=== PATIENT | female | born 1945 | race Caucasian/White ===

== ENCOUNTER → 2021-01-13 20:14 | Outpatient (ROUT) | payer MEDICARE, SELFPAY ==
[2021-01-13 20:58] LABS: Add Manual Diff / Slide Review NO; Basophils Absolute Auto 100 /uL (0-100); Basophils Percent Auto 0.7 % (0-2); Eosinophils Absolute Auto 300 /uL (0-450); Eosinophils Percent Auto 4.8 % (2-4); Hematocrit 43.7 % (36-46); Hemoglobin 14.4 g/dL (12.0-16.0); Lymphocytes Absolute Auto 2100 /uL (1100-4500); Lymphocytes Percent Auto 28.7 % (25-40); Mean Corpuscular Hemoglobin 30.4 PG (26-34); Mean Corpuscular Volume 92.1 fL (80-100); Monocytes Absolute Auto 400 /uL (0-900); Neutrophils Absolute Auto 4300 /uL (1500-7000); Neutrophils Percent Auto 59.8 % (50-75); Platelet Count 250 X10^3/uL (150-400); Red Blood Cell Count 4.75 X10^6/uL (4.0-5.2); White Blood Cell Count 7.2 X10^3/uL (4.5-11.0)
[2021-01-13 21:02] LABS: Alanine Aminotransferase 14 IU/L (<35); Albumin Globulin Ratio 1.5 (1.0-2.8); Alkaline Phosphatase 84 U/L (38-126); Aspartate Aminotransferase 23 IU/L (14-36); BUN Creatinine Ratio 19.7 (6-22); Bilirubin Total 0.3 mg/dL (0.2-1.3); Blood Urea Nitrogen 12 mg/dL (7-17); Calcium 9.4 mg/dL (8.4-10.2); Carbon Dioxide 29 mmol/L (22-32); Chloride 103 mmol/L (98-107); Cholesterol 230 mg/dL (140-199); Estimated Glomerular Filt Rate > 60.0 mL/min (>60); Globulin 2.6 g/dL (1.7-4.1); Glucose 95 mg/dL (80-110); HDL Cholesterol 75 mg/dL (40-60); HEMOLYSIS < 15 (0-50); LDL Cholesterol Calculated 133 mg/dL (<100); Potassium 4.1 mmol/L (3.4-5.1); Sodium 139 mmol/L (137-145); Total Protein 6.6 g/dL (6.3-8.2); Triglycerides 110 mg/dL (35-150)
[2021-01-13 21:32] LABS: TSH w/ Reflex to FT4 2.36 uIU/mL (0.47-4.68)
== END ==
PROVIDERS: Visit Provider Internal Medicine
DX: E78.2 Mixed hyperlipidemia (principal); I48.0 Paroxysmal atrial fibrillation
CPT/HCPCS: 80053; 80061; 84443; 85025

== ENCOUNTER → 2021-05-28 16:36 | Outpatient (CLI) | payer MEDICARE, OTHER, SELFPAY ==
--- NOTE | 2021-05-28 16:38 | DI.MG.S_ITS ---
BILATERAL DIGITAL SCREENING MAMMOGRAM 3D/2D WITH CAD: 05/28/2021 CLINICAL: Routine screening. Family history of breast cancer. Comparison is made to exams dated: 12/30/2017 mammogram, 07/07/2017 mammogram, 01/18/2017 mammogram - outside facility, and 11/19/2015 ultrasound - outside. The tissue of both breasts is heterogeneously dense. This may lower the sensitivity of mammography. Current study was also evaluated with a Computer Aided Detection (CAD) system. No significant masses, calcifications, or other findings are seen in either breast. There has been no significant interval change. IMPRESSION: NEGATIVE There is no mammographic evidence of malignancy. A 1 year screening mammogram is recommended. This exam was interpreted at Station ID: [id number]. NOTE: For mammograms, a report in lay terms will be sent to the patient. Approximately 15% of breast malignancies will not be visualized mammographically. In the management of a palpable breast mass, a negative mammogram must not discourage biopsy of a clinically suspicious lesion. Electronically Signed By: Neil de la vega/klaudia:05/29/2021 10:11:18 letter sent: Normal Exam ACR BI-RADS Category 1: Negative 3341F
== END ==
PROVIDERS: Referring Provider Internal Medicine; Visit Provider Internal Medicine
DX: Z12.31 Encounter for screening mammogram for malignant neoplasm of breast (principal); Z80.3 Family history of malignant neoplasm of breast
CPT/HCPCS: 77063; 77067

== ENCOUNTER → 2022-02-09 15:06 | Outpatient (CLI) | payer MEDICARE, OTHER, SELFPAY ==
[2022-02-09 15:58] LABS: Hematocrit 41.3 % (36-46); Hemoglobin 13.7 g/dL (12.0-16.0); Mean Corpuscular HGB Conc 33.1 % (30-36); Mean Corpuscular Volume 90.6 fL (80-100); Platelet Count 260 X10^3/uL (150-400); Red Blood Cell Count 4.56 X10^6/uL (4.0-5.2); Red Cell Distribution Width 14.1 % (11.6-14.8); White Blood Cell Count 7.1 X10^3/uL (4.5-11.0)
[2022-02-09 16:28] LABS: Alanine Aminotransferase 18 IU/L (<35); Albumin 4.3 g/dL (3.5-5.0); Albumin Globulin Ratio 1.4 (1.0-2.8); Alkaline Phosphatase 68 U/L (38-126); Aspartate Aminotransferase 29 IU/L (14-36); BUN Creatinine Ratio 13.9 (6-22); Bilirubin Total 0.8 mg/dL (0.2-1.3); Blood Urea Nitrogen 10 mg/dL (7-17); Calcium 8.9 mg/dL (8.4-10.2); Carbon Dioxide 28 mmol/L (22-32); Chloride 106 mmol/L (98-107); Cholesterol 153 mg/dL (140-199); Estimated Glomerular Filt Rate > 60 mL/min (>60); Glucose 100 mg/dL (80-110); HDL Cholesterol 79 mg/dL (40-60); HEMOLYSIS 18 (0-50); LDL Cholesterol Calculated 60 mg/dL (<100); Potassium 3.8 mmol/L (3.4-5.1); Sodium 140 mmol/L (137-145); Total Protein 7.3 g/dL (6.3-8.2); Triglycerides 71 mg/dL (35-150)
[2022-02-09 17:07] LABS: TSH w/ Reflex to FT4 1.62 uIU/mL (0.47-4.68)
== END ==
PROVIDERS: PCP Internal Medicine; Referring Provider Internal Medicine; Visit Provider Internal Medicine
DX: E78.2 Mixed hyperlipidemia (principal); I48.0 Paroxysmal atrial fibrillation; Z79.01 Long term (current) use of anticoagulants
CPT/HCPCS: 36415; 80053; 80061; 84443; 85027

== ENCOUNTER → 2022-03-27 16:49 | Outpatient (CLI) | payer MEDICARE, OTHER, SELFPAY ==
--- NOTE | 2022-03-27 17:01 | DI.RAD.S_ITS ---
PROCEDURE: XR LUMBAR SPINE 2-3V INDICATIONS: Back pain TECHNIQUE: Three views of the lumbar spine were acquired. COMPARISON: None. FINDINGS: Bones: Five cop-gdc-zzneuef vertebrae are present. There is rudimentary disc at the S1-2 level. Trace anterolisthesis L4 on five. No vertebral body compression fractures. Maintained disc spaces. No suspicious bony lesions. Soft tissues: Overlying bowel gas pattern is normal. No suspicious soft tissue calcifications. IMPRESSION: 1. Mild spondylolisthesis L4-5. Dictated by: Kaykay Gambino M.D. on 03/27/2022 at 19:05 Approved by: Kaykay Gambino M.D. on 03/27/2022 at 19:07
== END ==
PROVIDERS: PCP Internal Medicine; Referring Provider Pediatrics; Visit Provider Pediatrics
DX: M54.50 Low back pain, unspecified (principal); M54.9 Dorsalgia, unspecified; M43.16 Spondylolisthesis, lumbar region
CPT/HCPCS: 72100

== ENCOUNTER → 2022-06-12 15:40 | Outpatient (CLI) | payer MEDICARE, OTHER, SELFPAY ==
--- NOTE | 2022-06-12 15:43 | DI.MG.S_ITS ---
BILATERAL DIGITAL SCREENING MAMMOGRAM 3D/2D WITH CAD: 06/12/2022 CLINICAL: Routine screening. Family history of breast cancer. Comparison is made to exams dated: 05/28/2021 mammogram - [facility], 12/30/2017 mammogram, and 07/07/2017 mammogram - outside facility. Both breasts are heterogeneously dense, which may obscure small masses (category c / 51-75% glandular tissue). Current study was also evaluated with a Computer Aided Detection (CAD) system. No significant masses, calcifications, or other findings are seen in either breast. There has been no significant interval change. IMPRESSION: NEGATIVE There is no mammographic evidence of malignancy. A 1 year screening mammogram is recommended. Based on the Tyrer Cuzick model (a risk assessment model) the patient's lifetime risk is 5.0% and her 10 year risk is 5.0%. According to the ACR, ACS, and NCCN guidelines, an annual breast MRI exam along with mammogram is recommended if the patient's lifetime risk is 20% or greater. This exam was interpreted at Station ID: [id number]. NOTE: For mammograms, a report in lay terms will be sent to the patient. Approximately 15% of breast malignancies will not be visualized mammographically. In the management of a palpable breast mass, a negative mammogram must not discourage biopsy of a clinically suspicious lesion. Electronically Signed By: Dilip anderson/klaudia:06/12/2022 16:57:12 letter sent: Normal Exam ACR BI-RADS Category 1: Negative 3341F
--- NOTE | 2022-06-12 15:43 | DI.CT.S_ITS ---
PROCEDURE: CT SINUS SCREEN WO CON INDICATIONS: chronic sinus congestion TECHNIQUE: Noncontrast 3.0 mm axial images acquired from the frontal sinuses to the mid-sella, with coronal and sagittal reformats. For radiation dose reduction, the following was used: automated exposure control, adjustment of mA and/or kV according to patient size. COMPARISON: None. FINDINGS: Image quality: Excellent. Maxillary Sinuses: There is moderate to prominent mucosal thickening within the left maxillary sinus. Ecpk-yw-dkptgifs mucosal thickening is seen within the right maxillary sinus. The medial campbell of the maxillary sinuses are demineralized. Ethmoid Air Cells: There is complete opacification of the ethmoid air cells. The ethmoid air cell bony septations are demineralized. Sphenoid Sinuses: The sphenoid sinuses are nearly completely opacified. There is mild thinning of the campbell of the anterior sphenoid sinuses. Frontal Sinuses: The frontal sinuses demonstrate moderate to prominent mucosal thickening. The campbell of the frontal sinuses are overall thickened. Ostiomeatal Complexes: The ostiomeatal complexes are completely opacified by soft tissue. There are highly demineralized. Miscellaneous: Visualized intra-orbital contents are normal. There is prominent abnormal soft tissue seen within the nasal cavity. The nasal turbinates are demineralized. The nasal septum is also demineralized. IMPRESSION: Prominent generalized paranasal sinus disease can be seen, which is overall worse than in 2014. Areas of bony demineralization/remodeling change can be seen, which are consistent with chronic sinusitis. Abnormal soft tissue can be seen within the nasal cavity, which is attributed to nasal polyps. There is associated demineralization the nasal turbinates. The ostiomeatal complexes are completely opacified and demineralized. Dictated by: Aleksey Mahmood M.D. on 06/12/2022 at 15:43 Approved by: Aleksey Mahmood M.D. on 06/12/2022 at 15:46
== END ==
PROVIDERS: PCP Internal Medicine; Referring Provider Otolaryngology; Visit Provider Otolaryngology
DX: J32.8 Other chronic sinusitis (principal); Z12.31 Encounter for screening mammogram for malignant neoplasm of breast; Z80.3 Family history of malignant neoplasm of breast; J31.0 Chronic rhinitis
CPT/HCPCS: 70486; 77063; 77067

== ENCOUNTER → 2023-08-09 11:22 | Outpatient (CLI) | payer MEDICARE, OTHER, SELFPAY ==
--- NOTE | 2023-08-09 | DI.MG.S_ITS ---
BILATERAL DIGITAL SCREENING MAMMOGRAM 3D/2D WITH CAD: 08/09/2023 CLINICAL: Routine screening. Family history of breast cancer. Comparison is made to exams dated: 06/12/2022 mammogram, 05/28/2021 mammogram - [facility], and 12/30/2017 mammogram - outside facility. Both breasts are heterogeneously dense, which may obscure small masses (category c / 51-75% glandular tissue). Current study was also evaluated with a Computer Aided Detection (CAD) system. There are benign vascular calcifications in both breasts. No significant masses, calcifications, or other findings are seen in either breast. There has been no significant interval change. IMPRESSION: BENIGN There is no mammographic evidence of malignancy. A 1 year screening mammogram is recommended. Based on the Tyrer Cuzick model (a risk assessment model) the patient's lifetime risk is 4.6% and her 10 year risk is 0.0%. According to the ACR, ACS, and NCCN guidelines, an annual breast MRI exam along with mammogram is recommended if the patient's lifetime risk is 20% or greater. This exam was interpreted at Station ID: [id number]. NOTE: For mammograms, a report in lay terms will be sent to the patient. Approximately 15% of breast malignancies will not be visualized mammographically. In the management of a palpable breast mass, a negative mammogram must not discourage biopsy of a clinically suspicious lesion. Electronically Signed By: Mary pyane/klaudia:08/09/2023 12:51:04 letter sent: Normal Exam ACR BI-RADS Category 2: Benign Finding(s) 3342F
== END ==
PROVIDERS: PCP Internal Medicine; Referring Provider Internal Medicine; Visit Provider Internal Medicine
DX: Z12.31 Encounter for screening mammogram for malignant neoplasm of breast (principal); Z80.3 Family history of malignant neoplasm of breast
CPT/HCPCS: 77063; 77067

== ENCOUNTER → 2023-09-30 12:06 | Outpatient (CLI) | payer MEDICARE, OTHER, SELFPAY ==
[2023-09-30 13:21] LABS: Cholesterol 147 mg/dL (140-199); HDL Cholesterol 76 mg/dL (40-60); LDL Cholesterol Calculated 57 mg/dL (<100); Triglycerides 70 mg/dL (35-150)
== END ==
PROVIDERS: PCP Internal Medicine; Referring Provider Internal Medicine Cardiovascular Disease; Visit Provider Internal Medicine Cardiovascular Disease
DX: E78.00 Pure hypercholesterolemia, unspecified (principal)
CPT/HCPCS: 36415; 80061

== ENCOUNTER → 2024-01-27 12:54 | Outpatient (CLI) | payer MEDICARE, OTHER, SELFPAY ==
[2024-01-27 14:44] LABS: Appearance Urine UA SL CLOUDY; Bilirubin Urine UA NEGATIVE (NEGATIVE); Color Urine UA ORANGE; Glucose Urine UA TRACE g/dL (Negative); Ketones Urine UA NEGATIVE (NEGATIVE); Leukocyte Esterase Urine UA TRACE (NEGATIVE); Nitrite Urine UA POSITIVE (Negative); Occult Blood Urine UA 2+ (Negative); Protein Urine UA 2+ (Negative); Specific Gravity Urine UA 1.025 (1.000-1.035); Urine Volume 10mL (spun)
[2024-01-27 14:45] LABS: Culture Indicated Urine Specimen Cultured
[2024-01-27 14:52] LABS: Bacteria Urine Many (>30); RBC Urine 1-5/HPF (0-5/HPF); Squamous Epithelial Cell Urine 1-5 /HPF (0-5/HPF); WBC Urine 5-10/HPF (0-5/HPF)
== END ==
PROVIDERS: PCP Internal Medicine; Referring Provider Internal Medicine; Visit Provider Internal Medicine
DX: R39.9 Unspecified symptoms and signs involving the genitourinary system (principal)
CPT/HCPCS: 81001; 87077; 87086

== ENCOUNTER → 2024-02-03 15:40 | Outpatient (CLI) | payer MEDICARE, OTHER, SELFPAY ==
[2024-02-03 18:54] LABS: Alanine Aminotransferase 18 IU/L (<35); Albumin 4.7 g/dL (3.5-5.0); Albumin Globulin Ratio 1.6 (1.0-2.8); Alkaline Phosphatase 82 U/L (38-126); Aspartate Aminotransferase 28 IU/L (14-36); BUN Creatinine Ratio 19.5 (6-22); Bilirubin Total 0.7 mg/dL (0.2-1.3); Blood Urea Nitrogen 22 mg/dL (7-17); Carbon Dioxide 24 mmol/L (22-32); Chloride 104 mmol/L (98-107); Cholesterol 194 mg/dL (140-199); Estimated Glomerular Filt Rate 50 mL/min (>60); Globulin 2.9 g/dL (1.7-4.1); Glucose 101 mg/dL (80-110); HDL Cholesterol 94 mg/dL (40-60); HEMOLYSIS < 15 (0-50); LDL Cholesterol Calculated 78 mg/dL (<100); Potassium 4.5 mmol/L (3.4-5.1); Sodium 138 mmol/L (137-145); Total Protein 7.6 g/dL (6.3-8.2); Triglycerides 108 mg/dL (35-150)
[2024-02-03 19:23] LABS: TSH w/ Reflex to FT4 2.26 uIU/mL (0.47-4.68)
== END ==
LOC: LAB 15:41
PROVIDERS: PCP Internal Medicine; Referring Provider Internal Medicine; Visit Provider Internal Medicine
DX: E78.2 Mixed hyperlipidemia (principal); I48.0 Paroxysmal atrial fibrillation; Z79.01 Long term (current) use of anticoagulants
CPT/HCPCS: 36415; 80053; 80061; 84443

== ENCOUNTER → 2024-07-12 13:09 | Outpatient (CLI) | payer MEDICARE, OTHER, SELFPAY ==
--- NOTE | 2024-07-12 13:12 | DI.US.S_ITS ---
PROCEDURE: US ARTERIAL DUPLEX LE RT INDICATIONS: POSSIBLE PSEUDOANEURYSM, A-V FISTULA POST CARDIAC ABLATION TECHNIQUE: Color and pulse Doppler interrogation was performed of the right lower extremity arterial system, with image documentation. COMPARISON: None. FINDINGS: Patent right common femoral artery on color Doppler and grayscale with normal spectral Doppler waveforms without evidence of significant atheromatous disease or evidence of pseudoaneurysm. The bifurcation of the superficial and deep femoral arteries appears normal. The common femoral vein appears normal. IMPRESSION: No definite pseudoaneurysm is seen on the provided images. Dictated by: Gareth Olivo M.D. on 07/12/2024 at 17:04 Approved by: Gareth Olivo M.D. on 07/12/2024 at 17:07
== END ==
PROVIDERS: PCP Internal Medicine
DX: I48.0 Paroxysmal atrial fibrillation (principal); I48.92 Unspecified atrial flutter; I47.19 Other supraventricular tachycardia
CPT/HCPCS: 93926

== ENCOUNTER 2024-07-20 14:35 | Emergency (ER) | payer MEDICARE, OTHER, SELFPAY ==
[2024-07-20 14:39] VITALS: BP 108/67; PULSE 85; RESP 20; TEMP 36.6; O2SAT 95; BMI 26.8
--- NOTE | 2024-07-20 14:47 | DI.RAD.S_ITS ---
PROCEDURE: XR ANKLE RT MIN 3V INDICATIONS: injury 2 days ago/bruising TECHNIQUE: 3 views of the ankle were acquired. COMPARISON: [facility], CR, XR FOOT RT MIN 3V, 07/20/2024, 15:45. FINDINGS: Bones: No fractures or dislocations. Ankle mortise is normally aligned. No suspicious bony lesions. Anterior talar osteophyte. Calcaneal spur. Soft tissues: No tibiotalar joint effusion. Achilles tendon appears normal. IMPRESSION: No visualized acute fracture or dislocation. However, if clinical concern and/or pain persist, short interval imaging followup in 7-10 days is recommended, as occult injury cannot be definitively excluded. Dictated by: Tesha Cook M.D. on 07/20/2024 at 17:32 Approved by: Tesha Cook M.D. on 07/20/2024 at 17:34
--- NOTE | 2024-07-20 14:47 | DI.RAD.S_ITS ---
PROCEDURE: XR FOOT RT MIN 3V INDICATIONS: injury 2 days ago/bruising TECHNIQUE: 3 views of the foot were acquired. COMPARISON: [facility], CR, XR ANKLE RT MIN 3V, 07/20/2024, 15:45. FINDINGS: Bones: No fractures or dislocations. No suspicious bony lesions. Talar osteophyte as well as calcaneal spur is present. Soft tissues: No tibiotalar joint effusion. Achilles tendon appears normal. IMPRESSION: No visualized acute fracture or dislocation. However, if clinical concern and/or pain persist, short interval imaging followup in 7-10 days is recommended, as occult injury cannot be definitively excluded. Dictated by: Tesha Cook M.D. on 07/20/2024 at 17:34 Approved by: Tesha Cook M.D. on 07/20/2024 at 17:35
--- NOTE | 2024-07-20 15:07 | EKG_ITS ---
[address] [address] Test Date: 2024-07-20 Pat Name: Autumn Álvarez Department: [facility] Room: Gender: Female Accident Examiner: SARAHI : 1945 Requested By: Order Number: [id number] Reading MD: Esa Hicks MD Measurements Intervals [place] Rate: 79 P: 107 MA: 160 QRS: 67 QRSD: 88 T: 78 QT: 374 QTc: 428 Interpretive Statements Normal sinus rhythm Electronically Signed On 07-21-2024 11:40:12 PST by Esa Hicks MD
[2024-07-20 15:08] LABS: Add Manual Diff / Slide Review NO; Basophils Absolute Auto 100 /uL (0-100); Eosinophils Absolute Auto 200 /uL (0-450); Eosinophils Percent Auto 2.7 % (2-4); Hematocrit 41.6 % (36-46); Hemoglobin 13.8 g/dL (12.0-16.0); Lymphocytes Absolute Auto 1500 /uL (1100-4500); Lymphocytes Percent Auto 16.5 % (25-40); Mean Corpuscular HGB Conc 33.3 % (30-36); Mean Corpuscular Volume 93.1 fL (80-100); Monocytes Absolute Auto 700 /uL (0-900); Monocytes Percent Auto 7.2 % (3-14); Neutrophils Absolute Auto 6600 /uL (1500-7000); Neutrophils Percent Auto 72.6 % (50-75); Platelet Count 273 X10^3/uL (150-400); Red Blood Cell Count 4.47 X10^6/uL (4.0-5.2); Red Cell Distribution Width 13.9 % (11.6-14.8); White Blood Cell Count 9.1 X10^3/uL (4.5-11.0)
[2024-07-20 15:15] LABS: Prothrombin Time 21.8 SECONDS (9.4-12.5)
[2024-07-20 15:20] LABS: Alanine Aminotransferase 27 IU/L (<35); Albumin 4.6 g/dL (3.5-5.0); Albumin Globulin Ratio 1.5 (1.0-2.8); Alkaline Phosphatase 83 U/L (38-126); Aspartate Aminotransferase 32 IU/L (14-36); Bilirubin Total 1.1 mg/dL (0.2-1.3); Blood Urea Nitrogen 17 mg/dL (7-17); Calcium 9.5 mg/dL (8.4-10.2); Carbon Dioxide 27 mmol/L (22-32); Chloride 102 mmol/L (98-107); Creatine Kinase 46 U/L (30-135); Estimated Glomerular Filt Rate 50 mL/min (>60); Glucose 127 mg/dL (80-110); HEMOLYSIS < 15 (0-50); Potassium 3.9 mmol/L (3.4-5.1); Sodium 138 mmol/L (137-145); Total Protein 7.6 g/dL (6.3-8.2)
[2024-07-20 15:21] LABS: Lactate (Lactic Acid) 0.9 mmol/L (0.7-2.1)
[2024-07-20 15:29] LABS: NT-proBNP (BNP-Adult 18+) 214 pg/mL (<450)
[2024-07-20 15:32] LABS: Troponin I < 0.012 ng/mL (0.01-0.034)
--- NOTE | 2024-07-20 16:13 | PC.NURSE ---
Pt ambulated to room 10 independently. Declined wheelchair. Right foot purple and swollen. Pt states that she rolled her ankle a 2 days ago. Pt can partially bear weight. Reports that she has been having some SOB with exertion x2 days and it has been getting worse. Cardiac ablation done 07/03. A&Ox4.
[2024-07-20 16:18] VITALS: BP 106/63; PULSE 75; RESP 16; O2SAT 94
--- NOTE | 2024-07-20 16:36 | ED.GENADULT ---
HPI - General Adult General Chief complaint: Shortness of Breath/Dyspnea Stated complaint: foot px, SOB, sent by [facility] Time Seen by Provider: 07/20/24 16:15 Source: patient Mode of arrival: Wheelchair History of Present Illness HPI narrative: Patient is a 79-year-old female. Is here for evaluation of a right ankle injury. States that 2 days ago she stepped wrong and twisted her right ankle. Had swelling afterwards. Now has bruising. States the swelling is actually improved. Has very minimal discomfort except with walking. She went to the walk-in clinic for evaluation and was sent to the emergency department because she did mentioned to them that she is having shortness of breath on exertion since yesterday. She has a history of AFib. Is on Xarelto. No chest pain. No fevers. No cough. Related Data Home Medications Medication Instructions Recorded Confirmed metoprolol succinate 25 mg 25 mg PO DAILY 02/09/22 02/03/24 tablet,extended release 24 hr mometasone 220 mcg/actuation(14 1 - 2 inh inhalation DAILY 02/09/22 02/03/24 doses) breath activated powder inhaler (Asmanex Twisthaler) rivaroxaban 20 mg tablet (Xarelto) 20 mg PO DAILY 02/09/22 02/03/24 flecainide 100 mg tablet 100 mg PO BID Afib/atrial flutter 01/27/24 02/03/24 Previous Rx's Medication Instructions Recorded sulfamethoxazole 800 1 tab PO BID #14 tabs 02/03/24 mg-trimethoprim 160 mg tablet rosuvastatin 10 mg tablet 10 mg PO DAILY #90 tabs 03/06/24 Allergies Allergy/AdvReac Type Severity Reaction Status Date / Time doxycycline Allergy Severe Rash Verified 02/03/24 12:51 WARFARIN Allergy Unknown T Uncoded 02/03/24 12:51 Review of Systems Review of Systems ROS Unobtainable: All systems reviewed & are unremarkable except as noted in HPI and below Patient History Medical History Primary osteoarthritis involving multiple joints Stasis dermatitis Venous (peripheral) insufficiency Tendonitis of left rotator cuff Recurrent sinusitis (~2004) Cataracts, bilateral (~2019) Low back pain Overweight Recurrent UTI Family history of colon cancer in mother Insomnia Hearing loss Grief reaction Asthma Mixed hyperlipidemia Chronic anticoagulation Paroxysmal atrial fibrillation Social History details: Single (partner Rafael 10/2021) Smoking Status: Never smoker Smoking Status: Never smoker Substance Use Type: does not use Exam Initial Vital Signs Initial Vital Signs: Vital Signs Temperature 97.8 F 07/20/24 14:39 Pulse Rate 85 07/20/24 14:39 Respiratory Rate 20 07/20/24 14:39 Blood Pressure 108/67 07/20/24 14:39 Pulse Oximetry 95 07/20/24 14:39 Oxygen Delivery Method Room Air 07/20/24 14:39 HENNJ Head: normal to inspection and normocephalic Resp Effort & Inspection: normal respiratory effort Auscultation: clear to auscultation bilaterally Cardio Rate: regular rate Rhythm: regular rhythm Skin Other: Bruising throughout the right ankle and right foot Neuro Sensory Exam: no sensory deficits noted Extrem Other: No proximal fibula tenderness. She has no tenderness along the Achilles, medial malleolus, lateral malleolus, base of the 5th metatarsal, Lisfranc joint. Course Orders Ordered: ED Orders 07/20/24 14:47 XR ankle RT min 3V Stat XR chest 1V Stat XR foot RT min 3V Stat EKG-12 Lead Stat Measure peak expiratory flow ONCE RT Consult Eval and Treat NOW 07/20/24 15:00 Complete Blood Count AUTO DIFF Stat Comprehensive Metabolic Panel Stat Lactate (Lactic Acid) Stat NT-proBNP (BNP-Adult 18+) Stat Prothrombin Time INR Stat Troponin & CK Cardiac Panel Stat Vital Signs Vital signs: Vital Signs - 8 hr 07/20/24 14:39 07/20/24 16:18 Temperature 97.8 F Pulse Rate 85 75 Respiratory Rate 20 16 Blood Pressure 108/67 106/63 Pulse Oximetry 95 94 Oxygen Delivery Method Room Air Room Air Medical Decision Making Lab Data Lab results reviewed: Yes I reviewed the patient's lab results. 07/20/24 15:00 07/20/24 15:00 Labs: Lab Results 07/20/24 07/20/24 Range/Units 15:00 15:00 WBC 9.1 (4.5-11.0) X10^3/uL RBC 4.47 (4.0-5.2) X10^6/uL Hgb 13.8 (12.0-16.0) g/dL Hct 41.6 (36-46) % MCV 93.1 (80-100) fL MCH 31.0 (26-34) PG MCHC 33.3 (30-36) % RDW 13.9 (11.6-14.8) % Plt Count 273 (150-400) X10^3/uL Neut % (Auto) 72.6 (50-75) % Lymph % (Auto) 16.5 L (25-40) % Winkler % (Auto) 7.2 (3-14) % Eos % (Auto) 2.7 (2-4) % Baso % (Auto) 1.0 (0-2) % Neut # (Auto) 6600 (8090-8514) /uL Lymph # (Auto) 1500 (5749-9392) /uL Winkler # (Auto) 700 (0-900) /uL Eos # (Auto) 200 (0-450) /uL Baso # (Auto) 100 (0-100) /uL PT 21.8 H (9.4-12.5) SECONDS INR 2.0 H (0.9-1.3) Sodium 138 (137-145) mmol/L Potassium 3.9 (3.4-5.1) mmol/L Chloride 102 (98-107) mmol/L Carbon Dioxide 27 (22-32) mmol/L BUN 17 (7-17) mg/dL Creatinine 1.13 H (0.52-1.04) mg/dL Estimated GFR 50 L (>60) mL/min BUN/Creatinine Ratio 15.0 (6-22) Glucose 127 H (80-110) mg/dL Lactate 0.9 (0.7-2.1) mmol/L Calcium 9.5 (8.4-10.2) mg/dL Total Bilirubin 1.1 (0.2-1.3) mg/dL AST 32 (14-36) IU/L ALT 27 (<35) IU/L Alkaline Phosphatase 83 (38-126) U/L Total Creatine Kinase 46 (30-135) U/L Troponin I Cancelled < 0.012 NT-Pro-B Natriuret Pep 214 (<450) pg/mL Total Protein 7.6 (6.3-8.2) g/dL Albumin 4.6 (3.5-5.0) g/dL Globulin 3.0 (1.7-4.1) g/dL Albumin/Globulin Ratio 1.5 (1.0-2.8) Imaging Data Extremity x-ray #1: My Impression: No acute fractures of the right foot Extremity x-ray #2: My Impression: No acute fractures of the right ankle ECG Data Attestation: I personally reviewed and interpreted this ECG as follows: Interpretation: Sinus rhythm Ventricular rate is 79 Normal axis Normal QRS Normal QTC No ST T wave changes MDM Narrative Medical decision making narrative: No fractures noted on the x-ray of the ankle or the foot. She has no tenderness to palpation. It is bruised and has mild swelling. We discussed conservative measures. She was having dyspnea on exertion. She declined the chest x-ray. I have low suspicion this is a pulmonary embolism given the fact that she was on Xarelto. Clinically does not have pneumonia. She would like to follow-up with her japanese tutor with regard to her shortness of breath. She was given return precautions. She expressed understanding and agreement with plan. Discharge Plan Departure Patient Disposition: Home Clinical Impression: Ankle sprain, Dyspnea on exertion Instructions: DI for Ankle Sprain, How To Perform RICE (Rest, Ice, Compress, Elevate) Activity Restrictions/Additional Instructions: There were no fractures noted on the x-rays. You can walk on your right ankle as tolerated. Recommend that you put ice over the area. The Santhosh bandage as needed. You are going to need follow-up with your japanese tutor regarding your shortness of breath. Contact them for a follow-up and return to the emergency department for new symptoms. Prescriptions: No Action rosuvastatin 10 mg tablet 10 mg PO DAILY Qty: 90 3RF sulfamethoxazole-trimethoprim 800-160 mg tablet 1 tab PO BID Qty: 14 2RF metoprolol succinate 25 mg tablet extended release 24 hr 25 mg PO DAILY Xarelto 20 mg tablet 20 mg PO DAILY Asmanex Twisthaler 220 mcg/ actuation (14) aerosol powdr breath activated 1 - 2 inh inhalation DAILY flecainide 100 mg tablet 100 mg PO BID Patient Comments: Just increased dosage from 50 mg twice daily as of 01/27/24 Referrals: Jonh aSvage MD [Primary Care Provider] - Stand Alone Forms: Patient Portal/API/Survey
[2024-07-20 16:54] VITALS: BP 119/68; RESP 20; O2SAT 100
== END 2024-07-20 16:56 | disposition home or self-care (01) ==
PROVIDERS: Emergency Provider Emergency Medicine; PCP Internal Medicine
DX: S93.401A Sprain of unspecified ligament of right ankle, initial encounter (principal); R06.09 Other forms of dyspnea; X50.1XXA Overexertion from prolonged static or awkward postures, initial encounter
CPT/HCPCS: 36415; 73610; 73630; 80053; 82550; 83605; 83880; 84484; 85025; 85610; 93005; 99283; 99284

== ENCOUNTER → 2024-09-28 13:30 | Outpatient (CLI) | payer MEDICARE, OTHER, SELFPAY ==
[2024-09-28 14:25] LABS: BUN Creatinine Ratio 14.9 (6-22); Blood Urea Nitrogen 14 mg/dL (7-17); Calcium 9.3 mg/dL (8.4-10.2); Carbon Dioxide 27 mmol/L (22-32); Chloride 103 mmol/L (98-107); Estimated Glomerular Filt Rate > 60 mL/min (>60); Glucose 102 mg/dL (80-110); HEMOLYSIS < 15 (0-50); Potassium 4.1 mmol/L (3.4-5.1); Sodium 137 mmol/L (137-145)
== END ==
PROVIDERS: PCP Internal Medicine; Referring Provider Physician Assistant Medical; Visit Provider Physician Assistant Medical
DX: Z98.890 Other specified postprocedural states (principal); Z86.79 Personal history of other diseases of the circulatory system
CPT/HCPCS: 36415; 80048

== ENCOUNTER → 2024-11-13 14:39 | Outpatient (CLI) | payer MEDICARE, OTHER, SELFPAY ==
--- NOTE | 2024-11-13 14:40 | DI.MG.S_ITS ---
MM screening mammo BI: 11/13/2024. BI-RADS: 1 CLINICAL: 79-year old female for bilateral screening mammogram. Tyrer-Cuzick lifetime risk of 7.1%. No personal or first-degree family history of breast cancer. Current reported family history of breast cancer: paternal aunt. PRIOR EXAMS 08/09/2023, 06/12/2022, 05/28/2021. MAMMOGRAPHY TECHNIQUE: 2D and 3D (tomosynthesis) digital mammographic views obtained, with additional images as needed for full coverage. Current study was also evaluated with a Computer Aided Detection (CAD) system. DENSITY C. The breasts are heterogeneously dense, which may obscure small masses. MAMMOGRAPHY FINDINGS Bilateral: No suspicious mass, asymmetry, microcalcification, or other abnormality seen. IMPRESSION: * No evidence of malignancy. RECOMMENDATIONS Bilateral * Annual screening mammography. OVERALL ASSESSMENT CATEGORY BI-RADS-1: Negative. The [employer] recommends annual screening mammography beginning at age 40 for women with average risk of breast cancer. ELECTRONICALLY SIGNED: Ashli Rosario M.D. on 11/14/2024 at 10:04:30 AM PT Interpreting Station ID: [id number]
== END ==
PROVIDERS: PCP Internal Medicine; Referring Provider Internal Medicine; Visit Provider Internal Medicine
DX: Z12.31 Encounter for screening mammogram for malignant neoplasm of breast (principal); R92.333 Mammographic heterogeneous density, bilateral breasts; Z80.3 Family history of malignant neoplasm of breast
CPT/HCPCS: 77063; 77067

== ENCOUNTER 2024-12-01 08:48 | Day surgery (SDC) | payer MEDICARE, OTHER, SELFPAY ==
--- NOTE | 2024-12-01 | PATH_ITS ---
[facility] Accession Number: [id number] No. of containers..01 Tissue . 01 Material submitted: . rectum - RECTAL POLYP AT 20 CM . 01 Diagnosis: RECTAL POLYP AT 20 CM: Hyperplastic polyp. [facility] 12/05/2024 1123 Local . 01 Electronically signed: . Mario Alberto Aguilar MD, PhD, Pathologist NPI- [id number] . 01 Gross description: . RECTAL POLYP AT 20 CM: Received in formalin are 3 fragment(s) of gutierrez, soft tissue measuring 0.1 x 0.1 x 0.1 cm to 0.3 x 0.3 x 0.2 cm submitted entirely in 1 cassette(s) /REGGIE 12/04/2024 1659 Local . 01 Pathologist provided ICD-10: K62.1 . 01 CPT . 268482 Specimen Comment: A courtesy copy of this report has been sent to [facility] Pathology Performed at: [address] [address], [place], [place] [id number] MD Gareth Duarte MD Phone: [phone]
[2024-12-01 09:15] VITALS: BP 125/78; PULSE 95; RESP 16; TEMP 36.3; O2SAT 96
[2024-12-01] MEDS: LACTATED RINGERS 1,000 ML 42 ML IV (09:29)
--- NOTE | 2024-12-01 09:50 | P.HP_ITS ---
History of Present Illness History of Present Illness Date Patient Seen: 12/01/24 Time Patient Seen: 09:50 Chief complaint: Screening Colonoscopy Narrative: Patient with a strong family history of colon cancer in her mother. Has had every 5 year colonoscopies x4, this is her 5th 1, her last colonoscopy was around 7 years ago no polyps. Notes no unexplained weight loss, no bright red blood per rectum, no hematochezia PFSH Medical History Primary osteoarthritis involving multiple joints Stasis dermatitis Venous (peripheral) insufficiency Tendonitis of left rotator cuff Recurrent sinusitis (~2004) Cataracts, bilateral (~2019) Low back pain Overweight Recurrent UTI Family history of colon cancer in mother Insomnia Hearing loss Grief reaction Asthma Mixed hyperlipidemia Chronic anticoagulation Paroxysmal atrial fibrillation Social History details: Single (partner Rafael 10/2021) Smoking Status: Never smoker alcohol intake: never Comment: Mother with colon cancer Meds Home Medications and Allergies Home Medications Medication Instructions Recorded Confirmed Type mometasone 220 mcg/actuation(14 1 - 2 inh inhalation DAILY 02/09/22 12/01/24 History doses) breath activated powder inhaler (Asmanex Twisthaler) rivaroxaban 20 mg tablet (Xarelto) 20 mg PO DAILY 02/09/22 12/01/24 History sulfamethoxazole 800 1 tab PO BID #14 tabs 02/03/24 02/03/24 Rx mg-trimethoprim 160 mg tablet rosuvastatin 10 mg tablet 10 mg PO DAILY #90 tabs 03/06/24 12/01/24 Rx Allergies Allergy/AdvReac Type Severity Reaction Status Date / Time doxycycline Allergy Severe Rash Verified 02/03/24 12:51 WARFARIN Allergy Unknown T Uncoded 02/03/24 12:51 Review of Systems Review of Systems ROS: Yes All systems reviewed with the patient and are negative except as otherwise documented Exam Vital Signs (past 8 hours): - 12/01/24 09:15 Temperature 97.4 F L Pulse Rate 95 H Respiratory Rate 16 Blood Pressure 125/78 Pulse Oximetry 96 Oxygen Delivery Method Room Air Oxygen Delivery Method Room Air Const General: cooperative and healthy appearing Nutritional Appearance: average body habitus Orientation: alert, awake and oriented x3 HENMT Head: normal to inspection Eyes General: appearance normal, both eyes and all related structures Neck Neck: normal visual inspection Chest Chest: normal inspection of the chest Resp Effort & Inspection: normal respiratory effort GI Inspection: normal to inspection Palpation: soft Assessment & Plan Assessment & Plan narrative: Family history colon cancer, here for screening interval colonoscopy. Questions answered and consent obtained, we will proceed with colonoscopy Time-Based Coding :: [TOTAL MINUTES] spent with patient and on the chart (including review of chart, obtaining history, exam, reviewing outside data, placing orders, documenting exam and treatment plan, and counseling patient) on [DATE]. PROFEE Assisted Living Assistant Document charge(s): Yes
[2024-12-01 10:33] VITALS: BP 112/65; PULSE 84; RESP 12; TEMP 36.1; O2SAT 94
--- NOTE | 2024-12-01 10:33 | PM.OP.COLON ---
Operative Date/Time/Diagnoses Date of procedure: 12/01/24 Time of procedure: 10:33 Pre-op diagnosis: Positive fit Post-op diagnosis: same Procedure & Clinicians Study performed: Colonoscopy Same procedure as scheduled: Yes Indications: Positive fit test Surgeon: Allen Mae Procedure Notes SCOAP/Timeout: Performed Procedure in detail: Patient seen in the preop area, H and P updated, positive fecal occult testing. Patient reported prep was adequate. Patient brought back to procedure room, time-out was performed verifying correct patient procedure. She was given sedation. External rectal exam was performed with no identified fissures, or external hemorrhoids of significance. Some skin excoriation from her prep. Digital rectal exam performed with no masses or blood. Colonoscope placed, colon insufflated, adequacy of prep was adequate but not perfect the scope was passed without difficulty to the cecum, verified by identification of the tinea and palpation The scope was withdrawn with circumferential view of the colon, areas occluded by bowel prep or cleaned as much as possible. A small rectal polyp at 20 cm was noted, this was biopsied and sent to pathology. Otherwise no lesions were identified upon removal of the scope. The scope was retroflexed in the rectum and no significant internal hemorrhoids were identified air was withdrawn from the colon, scope was withdrawn, and the patient was brought to the recovery area in stable condition. Scope withdrawal time: 16 minutes Findings: polyp(s) Specimen(s): other Complications: none Impression: Normal colonoscopy, 1 polyp at 20 cm which was biopsied Post-procedure Recommendations: Colonoscopy in 3 years Plan for aftercare: PACU Follow up: as needed (Plan for repeat colonoscopy in 3-5 years to evaluate for further polyps.) Disposition: PACU
[2024-12-01 10:35] VITALS: BP 111/63; PULSE 84; RESP 18; O2SAT 96
[2024-12-01 10:42] VITALS: BP 106/70; PULSE 94; RESP 18; TEMP 36.2; O2SAT 96
== END 2024-12-01 11:04 | disposition home or self-care (01) ==
PROVIDERS: PCP Internal Medicine
DX: Z12.11 Encounter for screening for malignant neoplasm of colon (principal); Z80.0 Family history of malignant neoplasm of digestive organs; R19.5 Other fecal abnormalities; K62.1 Rectal polyp
CPT/HCPCS: 45380; J2704

== ENCOUNTER → 2025-07-02 16:31 | Outpatient (CLI) | payer MEDICARE, OTHER, SELFPAY | PROVIDERS: PCP Internal Medicine; Visit Provider Chiropractor | DX: R30.0 Dysuria (principal) | CPT/HCPCS: 87086 ==

== ENCOUNTER → 2025-07-26 13:18 | Outpatient (CLI) | payer MEDICARE, OTHER, SELFPAY ==
[2025-07-26 14:10] LABS: Cholesterol 141 mg/dL (140-199); HDL Cholesterol 85 mg/dL (40-60); Triglycerides 87 mg/dL (35-150)
[2025-07-26 15:49] LABS: Blood Urea Nitrogen 15 mg/dL (7-17); Calcium 8.8 mg/dL (8.4-10.2); Carbon Dioxide 26 mmol/L (22-32); Chloride 105 mmol/L (98-107); Estimated Glomerular Filt Rate > 60 mL/min (>60); Glucose 99 mg/dL (70-99); HEMOLYSIS < 15 (0-50); Potassium 4.6 mmol/L (3.4-5.1); Sodium 139 mmol/L (137-145)
== END ==
PROVIDERS: PCP Internal Medicine; Referring Provider Internal Medicine; Visit Provider Internal Medicine Cardiovascular Disease
DX: E78.2 Mixed hyperlipidemia (principal); E78.00 Pure hypercholesterolemia, unspecified; Z98.890 Other specified postprocedural states; Z86.79 Personal history of other diseases of the circulatory system
CPT/HCPCS: 36415; 80048; 80061